=== PATIENT | male | born 1940 | race Two or more races ===

== ENCOUNTER 2019-03-02 12:24 | Inpatient (IN) | payer OTHER, MEDICAID ==
[~2019-03-02] VITALS: Ht 167.6 cm; Wt 86.2 kg
[2019-03-02] MEDS ORDERED: CEFAZOLIN 1000MG PREMIX 50 ML IV ONE (13:00)
[2019-03-02] MEDS ORDERED: TETANUS, DIPHTHERIA, PERTUSSIS VAC/PF 0.5ML (>7YR OLD) IM ONE (13:00)
[2019-03-02] MEDS ORDERED: SODIUM CHLORIDE 0.9% 1,000 ML IV ONE (13:00)
[2019-03-02 13:21] LABS: EOSINOPHILS % 1.4 % (0.0-5.0); HEMATOCRIT. 33.5 % (42.0-52.0); HEMOGLOBIN. 11.1 g/dL (14.0-18.0); LYMPHOCYTES % 19.9 % (20.0-50.0); MEAN CORPUSCULAR HEMOGLOBIN 32.6 pg (28.0-32.0); MEAN CORPUSCULAR VOLUME 98.1 fL (80.0-94.0); MEAN PLATELET VOLUME 7.6 fl (7.4-10.4); MONOCYTES % 6.5 % (2.0-8.0); NEUTROPHILS % 71.2 % (40.0-76.0); PLATELET 239 x1000/uL (130-400); RED BLOOD CELL COUNT 3.42 mill/uL (4.7-6.1); RED CELL DISTRIBUTION WIDTH 20.4 % (11.6-14.6)
[2019-03-02 13:28] LABS: CHLORIDE 106 mEq/L (98-107)
[2019-03-02 13:30] LABS: PROTHROMBIN TIME 10.4 sec (9.6-11.0)
[2019-03-02] MEDS ORDERED: MORPHINE SULFATE 2 MG/ML CPJ (NOT FOR IM USE) IV ONE (15:00)
[2019-03-02] MEDS ORDERED: ONDANSETRON HCL 4MG/2ML INJ IV ONE (16:00)
[2019-03-02 18:00] VITALS: BP 130/73
[2019-03-02] MEDS ORDERED: IBUPROFEN 600MG TABLET PO PRN (18:45)
[2019-03-02] MEDS ORDERED: CLONIDINE 0.1MG TABLET PO PRN (21:30)
[2019-03-02] MEDS ORDERED: DIPHENHYDRAMINE 50MG/ML VIAL IV PRN (21:30)
[2019-03-02] MEDS ORDERED: ONDANSETRON HCL 4MG/2ML INJ IV PRN (21:30)
[2019-03-02] MEDS ORDERED: ACETAMINOPHEN 325MG TABLET PO PRN (21:30)
[2019-03-02] MEDS ORDERED: MAGNESIUM/ALUMINUM HYDROXIDE/SIMETHICONE 30ML UDC PO PRN (21:30)
[2019-03-02] MEDS ORDERED: CEFAZOLIN SODIUM 1000MG/VIAL IV SCH (22:00)
[2019-03-03] VITALS: BP 119/68
[2019-03-03] MEDS: CEFAZOLIN 1000MG PREMIX 50 ML IV SCH ×2 (01:26→07:15)
[2019-03-03] MEDS: HYDROCODONE/ACETAMINOPHEN 5/325MG TABLET PO PRN ×4 (01:34→23:39)
[2019-03-03 04:00] VITALS: BP 113/48
[2019-03-03 07:14] LABS: BASOPHILS % 0.7 % (0.0-2.0); EOSINOPHILS % 1.2 % (0.0-5.0); HEMATOCRIT. 30.6 % (42.0-52.0); HEMOGLOBIN. 10.3 g/dL (14.0-18.0); LYMPHOCYTES % 33.9 % (20.0-50.0); MEAN CORPUSCULAR VOLUME 97.6 fL (80.0-94.0); MEAN PLATELET VOLUME 7.6 fl (7.4-10.4); NEUTROPHILS % 55.2 % (40.0-76.0); PLATELET 206 x1000/uL (130-400); RED BLOOD CELL COUNT 3.13 mill/uL (4.7-6.1); RED CELL DISTRIBUTION WIDTH 19.6 % (11.6-14.6)
[2019-03-03 07:40] LABS: CHLORIDE 107 mEq/L (98-107)
[2019-03-03 08:00] VITALS: BP 125/65
[2019-03-03] MEDS: AMLODIPINE 10MG TABLET PO SCH (08:12)
[2019-03-03] MEDS: METOPROLOL TARTRATE 25MG TABLET PO SCH ×2 (08:12→23:27)
[2019-03-03] MEDS: PANTOPRAZOLE 40MG DR TABLET PO SCH ×2 (08:12→23:26)
[2019-03-03] MEDS: ASPIRIN 81MG EC TABLET PO SCH (08:12)
[2019-03-03 12:00] VITALS: BP 105/60
[2019-03-03] MEDS ORDERED: VANCOMYCIN 1,750 MG in DEXT 5% WATER 250 ML IV NR (13:00)
[2019-03-03] MEDS: SODIUM CHLORIDE 0.9% INJ 3ML FLUSH IVF SCH (13:10)
[2019-03-03] MEDS ORDERED: AMPICILLIN SOD/SULBACTAM NA 1.5 G in SODIUM CHLORIDE 0.9% 50 ML IV SCH (14:00)
[2019-03-03] MEDS: AMPICILLIN SOD/SULBACTAM NA 1.5 G in SODIUM CHLORIDE 0.9% 50 ML IV SCH ×2 (15:49→21:30)
[2019-03-03 16:00] VITALS: BP 118/61
[2019-03-03 20:00] VITALS: BP 125/65
[2019-03-03] MEDS: ATORVASTATIN CALCIUM 10MG TABLET PO SCH (23:26)
[2019-03-04] VITALS (7 sets, daily range): BP systolic 122–152; BP diastolic 62–73
[2019-03-04] MEDS ORDERED: VANCOMYCIN 750 MG PREMIX 150 ML IV SCH
[2019-03-04] MEDS: HYDROCODONE/ACETAMINOPHEN 5/325MG TABLET PO PRN ×3 (04:53→18:57)
[2019-03-04] MEDS: SODIUM CHLORIDE 0.9% INJ 3ML FLUSH IVF SCH ×3 (04:55→14:47)
[2019-03-04] MEDS ORDERED: VANCOMYCIN 1250MG in DEXTROSE 5% WATER 250ML IV SCH (06:00)
[2019-03-04 06:34] LABS: BASOPHILS % 0.9 % (0.0-2.0); EOSINOPHILS % 2.6 % (0.0-5.0); HEMATOCRIT. 30.8 % (42.0-52.0); HEMOGLOBIN. 10.5 g/dL (14.0-18.0); LYMPHOCYTES % 29.8 % (20.0-50.0); MEAN CORPUSCULAR HEMOGLOBIN 33.4 pg (28.0-32.0); MEAN CORPUSCULAR VOLUME 98.1 fL (80.0-94.0); MEAN PLATELET VOLUME 7.9 fl (7.4-10.4); NEUTROPHILS % 57.7 % (40.0-76.0); PLATELET 199 x1000/uL (130-400); RED BLOOD CELL COUNT 3.14 mill/uL (4.7-6.1); RED CELL DISTRIBUTION WIDTH 20.5 % (11.6-14.6)
[2019-03-04] MEDS: PANTOPRAZOLE 40MG DR TABLET PO SCH (06:40)
[2019-03-04 06:43] LABS: CHLORIDE 106 mEq/L (98-107)
[2019-03-04] MEDS: AMPICILLIN SOD/SULBACTAM NA 1.5 G in SODIUM CHLORIDE 0.9% 50 ML IV SCH ×3 (06:47→14:46)
[2019-03-04 06:51] LABS: HDL CHOLESTEROL 41 mg/dL (40-59); LDL CHOLESTEROL 79 mg/dL (5-100)
[2019-03-04 06:54] LABS: T4 FREE 0.89 ng/dL (0.76-1.46)
[2019-03-04] MEDS: ASPIRIN 81MG EC TABLET PO SCH (08:22)
[2019-03-04] MEDS: METOPROLOL TARTRATE 25MG TABLET PO SCH ×2 (08:22→20:24)
[2019-03-04] MEDS: AMLODIPINE 10MG TABLET PO SCH (09:00)
[2019-03-04] MEDS ORDERED: FAMOTIDINE 20MG TABLET PO SCH (17:00)
[2019-03-04] MEDS: ATORVASTATIN CALCIUM 10MG TABLET PO SCH (20:24)
== END 2019-03-04 22:12 | disposition short-term general hospital (02) | DRG 351 ==
LOC: ER 12:24 → 6EST 15:18 → EDBEDREQSVC 15:20 → EDBEDREQTM 15:20 → EDBEDREQ 15:20 → ENRESERV 16:12
PROVIDERS: ADMIT Internal Medicine; ATTEND Internal Medicine
PROC: 0HDFXZZ Extraction of Right Hand Skin, External Approach (ICD-10-PCS; principal; 2019-03-02)
DX: T79.A11A Traumatic compartment syndrome of right upper extremity, initial encounter (principal); M72.6 Necrotizing fasciitis; D53.9 Nutritional anemia, unspecified; J44.9 Chronic obstructive pulmonary disease, unspecified; E78.00 Pure hypercholesterolemia, unspecified; S51.851A Open bite of right forearm, initial encounter; E78.5 Hyperlipidemia, unspecified; L03.113 Cellulitis of right upper limb; R73.9 Hyperglycemia, unspecified; S61.452A Open bite of left hand, initial encounter; K21.9 Gastro-esophageal reflux disease without esophagitis; I10 Essential (primary) hypertension; W54.0XXA Bitten by dog, initial encounter; Z23 Encounter for immunization; Y93.89 Activity, other specified; Y92.89 Other specified places as the place of occurrence of the external cause; Y99.8 Other external cause status
CPT/HCPCS: 36415; 71045; 73090; 73130; 73200; 80048; 80061; 83036; 84134; 84439; 84443; 84484; 86850; 86900; 90715; 93005; 96374; 96375; 97166; 99285; J0295; J0690; J2270; J2405; J3370; J7030; J7060